=== PATIENT | male | born 1995 | race Caucasian/White ===

== ENCOUNTER 2025-02-04 08:16 | Emergency (ER) | payer OTHER, SELFPAY ==
[2025-02-04 08:17] VITALS: BP 152/81; PULSE 93; RESP 18; TEMP 37; O2SAT 100
[2025-02-04 08:18] VITALS: BMI 41.5
[2025-02-04 08:53] LABS: Absolute Lymphocyte Count 0.23 X10^3/uL (0.83-4.51); Absolute Neutrophil Count 7.9 X10^3/uL (2.0-7.7); Basophil# 0.02 X10^3/uL; Basophil% 0.2 % (0-1); Hematocrit 49.4 % (40-54); Lymphocyte # 0.23 X10^3/ul (0.83-4.51); Lymphocyte % 2.6 % (19-41); Mean Corp Hgb Conc 34.4 g/dL (32-36); Mean Corpuscular Hgb 29.8 pg (27.0-32.0); Mean Corpuscular Volume 86.7 fL (80-94); Mean Platelet Vol. 12.3 fl (6.2-12.0); Monocyte# 0.46 X10^3/uL; Monocyte% 5.3 % (0-10); NRBC Flagged by Analyzer 0 % (0-5); Neutrophil # 7.94 X10^3/uL (2.7-7.7); Neutrophil % 91.3 % (47-70); POSITIVE DIFFERENTIAL YES; Platelet Count 132 K/mm3 (150-450); RBC Distribution Width CV 12.7 % (11.6-14.6); RBC Distribution Width SD 39.9 fl (35.1-43.9); White Blood Count 8.7 K/mm3 (4.4-11.0)
[2025-02-04] MEDS: Morphine 4 MG/ML Syringe IV (08:53)
[2025-02-04] MEDS: 0.9% Normal Saline (1000mL) 1,000 ML 1000 ML IV ×3 (08:53→13:04)
[2025-02-04] MEDS: Ondansetron 4 MG/2 ML Vial IV (08:53)
--- OUTSIDE RECORDS SUMMARY | 2025-02-04 09:10 | XMS RPT_ITS | CCD ---
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 (1 source) Epididymo-orchit is; Translations: [EPIDIDYMO-ORCHI TIS] Onset: 07-17-2017 Episodic Results Test Name Value Interpretation Reference Range Facility Testicular with Arterial Gaurav won 07-03-2017 Testicular with Arterial Flow [facility] [address] [place], [place] [address]Mdymwyaaxz with Arterial FlowMR#: [id number] Acct: [id number]: ANDRE ALICEA Rep #: [id number]: 1995 M 21 From: Anupam Gracia MDPCP: Jeancarlos Patel MD Status: REG CLIStudy: Testicular with Arterial Flow Date of Exam: 07/03/17Exam# [id number] Ordering Dr: Jeancarlos Patel MDSTUDY: SCROTUM ULTRASOUNDREASON FOR EXAM: Male, 21 years old. Left testicular pain and swellingsince Thursday.TECHNIQUE: Ultrasound evaluation of the scrotum was performed with colorDoppler and static winchester-scale imaging.COMPARISON: None. FINDINGS:RIG HT TESTICLEINTRATESTICULAR: There is a normal size of the right testicle. The righttesticle measures 5.0 cm x 3.3 cm x 2.8 cm. There is a homogenousechotexture. There is normal arterial and normal venous vascularity.There is no demonstrated right testicular mass or cyst.EXTRATESTICULAR: The epididymis is normal in size. The epididymis headmeasures 0.6 cm x 1.2 cm x 0.6 cm. There is normal vascularity of theepididymis. There is no demonstrated epididymal cystic structure. Thereis no demonstrated hydrocele. There is no demonstrated varicocele. Thereis no demonstrated extratesticular mass or cyst.LEFT TESTICLEINTRATESTICULAR: There is a normal size of the left testicle. The lefttesticle measures 4.4 cm x 3.2 cm x 3.4 cm. There is a mild heterogeneousechotexture. There is normal arterial and normal venous vascularity.There is no demonstrated left testicular mass or cyst.EXTRATESTICULAR: The epididymis is enlarged. The epididymis head measures0.8 cm x 1.7 cm x 1.9 cm. There is increased (hyperemic) vascularity ofthe epididymis. There is no demonstrated epididymal cystic structure.There is a small hydrocele. Septations are seen within it. There is nodemonstrated varicocele. There is no demonstrated extratesticular mass orcyst. ORDER #: [id number] US/Testicular with Arterial FlowIMPRESSION:Small left hydrocele with septations. Enlargement of the left epididymiswith increased vascularity and mild echogenicity of the testicle. 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 Normal [facility] Encounters Encounter Date Encounter Type Care Provider Facility Start: 07-03-2017 Ambulatory Jeancarlos Patel Facility:[facility] Start: 06-30-2017 End: 07-01-2017 [facility] Payers Date Payer Category Payer Unknown 2017 Unknown [id number] Summary Purpose Family History No Family History Records FoundNo Family History Records Found Advance Directives No Advanced Directives Records FoundNo Advanced Directives Records Found Additional Source Comments (unrecognized sect ion and content) No Status Records FoundNo Status Records Found INFORMATION SOURCE (unrecogn ized section and content) DATE CREATED AUTHOR 02/23/2018 [facility] DATE CREATED AUTHOR AUTHOR'S FÉLIX VASQUEZ 02/23/2018 [facility] FOR RECORDS PERTAINING TO PATIENTS WHO ARE OR HAVE BEEN ENROLLED IN A CHEMICAL DEPENDENCY/SUBSTANCEABUSE PROGRAM, SOME INFORMATION MAY BE OMITTED. This clinical summary was aggregated from multiple sources. Caution should be exercised in using it in the provision of clinical care. This summary normalizes information from multiple sources, and as a consequence, information in this document may materially change the coding, format and clinical context of patient data. In addition, data may be omitted in some cases. CLINICAL DECISIONS SHOULD BE BASED ON THE PRIMARY CLINICAL RECORDS. [facility] [employer] provides no warranty or guarantee of the accuracy or completeness of information in this document.
[2025-02-04 09:17] LABS: ALB/GLOB Ratio 1.4 RATIO (0.9-2.4); AST(SGOT) 23 U/L (<=37); Alanine Aminotransfer ALT/SGPT 15 U/L (<=46); Albumin, Serum 4.1 g/dL (3.5-5.0); Alkaline Phosphatase 77 U/L (40-129); Anion Gap 13 (5-15); BUN 15 mg/dL (4-19); BUN/Creat Ratio 11.7 RATIO (10-20); Calcium,Total 9.3 mg/dL (7.6-11.0); Carbon Dioxide 22.5 mmol/L (21.0-32.0); Chloride 97 mmol/L (98-108); Creatinine, Serum 1.28 mg/dL (0.70-1.20); EST Glomerular Filtration Rate 79 (>60); Estimated Creatinine Clearance 118.35 ml/min (50-250); Globulin 2.9 g/dL (2.2-4.2); Glucose 145 mg/dL (70-99); Lipase 13 U/L (13-75); Sodium Level 132 mmol/L (133-145); Total Bilirubin 0.98 mg/dL (0.00-1.30)
[2025-02-04 09:21] LABS: Lactic Acid 2.3 mmol/L (0.0-2.0)
[2025-02-04 10:26] VITALS: BP 140/88; PULSE 70; RESP 28; O2SAT 99
--- NOTE | 2025-02-04 10:33 | EX.ED.DYSGE1 ---
HPI History of Present Illness Chief Complaint: Nausea/Vomiting/Diarrhea Detail of Chief Complaint: Numerous episodes of nausea and vomiting since last evening Informant: patient Onset/Context/Timing Onset: Yesterday Context: Sudden Onset Timing: Intermittent Quality: Nausea and vomiting 10-15 times and abdominal discomfort Location: GI Current Severity: Mild Maximum Severity: Moderate Worsened by: Palpation and attempt to eat or drink anything Relieved by: Nothing Associated Symptoms Associated Symptoms: Last bowel movement 2 days ago Narrative Narrative: Patient is a 29-year-old male. He presents to the emergency room with nausea and vomiting and abdominal pain. He has had no ill contacts. He denies fever, chills night sweats. Nu[place] headache, visual, ocular auditory symptoms. He denies any upper respiratory infectious symptoms. He denies diarrhea. He denies hematemesis or coffee-ground emesis. He said decreased urine output. He gets orthostatic lightheadedness. He denies rash. He has no significant past medical history. Patient appears ill but not toxic. Prior similar symptoms: Yes Recent Illness/Hospitalization: No PFSH PFSH Medical History no medical history no medical history Home Medications ?Medication ?Instructions ?Recorded ?Last Taken ?Type dicyclomine 10 mg capsule 20 mg (2 x 10 mg) PO TIDAC #20 02/04/25 Unknown Rx CAPSULES ondansetron 4 mg disintegrating 4 mg PO Q8H PRN PRN Nausea #6 tabs 02/04/25 Unknown Rx tablet Allergy/AdvReac Type Severity Reaction Status Date / Time No Known Allergies Allergy Verified 02/04/25 08:16 Surgical History no surgical history no surgical history Social History (Updated 02/04/25 @ 10:[address] Kenyon Irwin MD) Smoking Status: Current every day smoker tobacco type: cigarettes details: Rare occasion substance use type: does not use ROS ROS ED Constitutional Constitutional ED: Denies chills, fever(s), subjective or sweats Eyes Eyes: Denies blurry vision or change in vision ENT ENT ED: Denies ear pain, rhinorrhea or sore throat Cardiovascular Cardiovascular: Denies chest pain or palpitations Respiratory/Chest Respiratory/Chest: Denies cough, dyspnea or dyspnea on exertion Gastrointestinal Gastrointestinal: Reports abdominal pain, nausea and vomiting; Denies constipation, diarrhea or melena Genitourinary Genitourinary ED: Reports other Details: Decreased urine output ; Denies dysuria, hematuria or urinary frequency Musculoskeletal Musculoskeletal: Denies arthralgias or myalgias Integumentary Denies Abrasions or rash Neurologic Neurologic: Reports weakness; Denies headache(s) or paresthesias Hematologic/Lymphatic Hematologic/Lymphatic: Reports systems reviewed and no addt'l complaints, except as documented EXAM Physical Exam Const Vital Signs: 02/04/25 08:17 02/04/25 10:26 02/04/25 12:00 Temperature 98.6 F Temperature Source Temporal Pulse Rate 93 70 87 Respiratory Rate 18 28 H Blood Pressure 152/81 H 140/88 H 139/87 H Blood Pressure Mean 104 105 104 Pulse Ox 100 99 30 Oxygen Delivery Method Room Air 02/04/25 14:00 Temperature 103 F H Temperature Source Oral Pulse Rate 80 Respiratory Rate 30 H Blood Pressure 132/90 H Blood Pressure Mean 104 Pulse Ox 99 Oxygen Delivery Method Room Air Positive well nourished and well developed Constitutional Narrative: Vital signs remarkable for an elevated blood pressure. He is not tachycardic. He is not hypoxic. He does appear ill. BMI is 41.7. General Appearance ED: well developed; Negative for cyanotic, diaphoretic, NAD or pallor HEENT Reports dry mucous membranes HEENT Narrative: Head is atraumatic normocephalic. Ears normal. Nares patent. Posterior pharynx is normal. Mouth ED: Yes dry mucous membranes Mouth: dry mucous membranes Eyes PERRL and EOMs intact bilaterally General Eye ED: Negative for pale conjunctiva or scleral icterus Neck no lymphadenopathy, supple and no JVD Chest Wall inspection of chest normal and palpation of chest normal Resp normal respiratory effort and clear to auscultation bilaterally Cardio regular rate, regular rhythm, S1 normal heart sound, S2 normal heart sound and no murmurs GI normal to inspection, nondistended, normoactive bowel sounds, non-tender, non-distended and no masses; Negative for hepatosplenomegaly Back/Spine no CVA tenderness Extremity normal to inspection Neuro oriented x3 and CN's II-XII intact bilaterally Neuro Narrative: He moves all extremities. Sensorium / Orientation: alert Psych mental status grossly normal Skin no rashes or lesions noted, no wounds and skin turgor normal General Skin Exam: Negative for jaundice or pallor MDM MDM MDM Narrative Medical decision making narrative: Clinically patient is dehydrated. Clinically his history and physical not consistent with a obstruction. He has no history of She will bowel obstruction the past. Furthermore he has no history of surgery. He has no significant past medical history is on no medication. Suspect this is probably a viral type illness. Because of his complaint of abdominal pain blood work was obtained which included electrolytes, liver enzymes and lipase. Lactate was obtained since he appears ill. CBC was obtained assess H&H as well as white count differential. Since clinically he appears dehydrated 1 L of normal saline was ordered. Patient was reassessed at 1036. He still has not urinated or have the urge to urinate after 1 L. Second liter was ordered. He does report marked improvement after receiving the Zofran and morphine. Lab Data Attestation: I reviewed the patient's lab results. Lab results narrative: White count is normal. H&H is slightly elevated. There is no base line labs for comparison. Electrolyte panel reveals elevated creatinine of 1.28 with an estimated GFR of 79. Lactate is elevated 2.3. Liver enzymes and lipase are normal. Labs: Laboratory Results - last 24 hr 02/04/25 02/04/25 08:46 12:57 WBC 8.7 RBC 5.70 Hgb 17.0 H Hct 49.4 MCV 86.7 MCH 29.8 MCHC 34.4 RDW Std Deviation 39.9 RDW Coeff of Marti 12.7 Plt Count 132 L MPV 12.3 H Immature Gran % (Auto) 0.600 Neut % (Auto) 91.3 H Lymph % (Auto) 2.6 L [place] % (Auto) 5.3 Eos % (Auto) 0.0 Baso % (Auto) 0.2 Absolute Neuts (auto) 7.9 H Absolute Lymphs (auto) 0.23 L Nucleated RBC % 0 Sodium 132 L Potassium 4.0 Chloride 97 L Carbon Dioxide 22.5 Anion Gap 13 BUN 15 Creatinine 1.28 H Estim Creat Clear Calc 118.35 Est GFR (MDRD) Non-Af 79 BUN/Creatinine Ratio 11.7 Glucose 145 H Lactic Acid 2.3 H* 1.4 Calcium 9.3 Total Bilirubin 0.98 AST 23 ALT 15 Alkaline Phosphatase 77 Total Protein 7.0 Albumin 4.1 Globulin 2.9 Albumin/Globulin Ratio 1.4 Lipase 13 Repeat lactate is normal. Treatment and Re-Evaluation :: Patient was reassessed at 1300. 800 cc of his second liter has infused. He has no urge to urinate. Third liter was ordered. Discharge Plan Triage Chief Complaint: Nausea/Vomiting/Diarrhea ED Provider: Kenyon Irwin Dx/Rx/DC Orders Clinical Impression: Acute generalized abdominal pain, Intractable nausea and vomiting, Acute dehydration, Elevated serum creatinine, Acute hyponatremia, Thrombocytopenia, Acidosis, lactic Prescriptions: New ondansetron 4 mg tablet,disintegrating 4 mg PO Q8H PRN PRN (Reason: Nausea) Qty: 6 0RF dicyclomine 10 mg capsule 20 mg PO TIDAC Qty: 20 0RF Primary Care Provider: Care Physician,No Primary Referrals: Care Physician,No Primary [Primary Care Provider] - Print Language: Georgian Disposition Disposition: Home, Self Care
[2025-02-04] MEDS: 0.9% Normal Saline (1000mL) 1,000 ML 15 ML IV (10:39)
[2025-02-04 12:00] VITALS: BP 139/87; PULSE 87; O2SAT 30
[2025-02-04 12:51] LABS: Reflex Lactate? Y
[2025-02-04 13:56] LABS: Lactic Acid 1.4 mmol/L (0.0-2.0)
[2025-02-04 14:00] VITALS: BP 132/90; PULSE 80; RESP 30; TEMP 39.4; O2SAT 99
[2025-02-04 15:22] VITALS: BP 138/77; PULSE 80; RESP 30; TEMP 39.4; O2SAT 99
== END 2025-02-04 15:23 | disposition home or self-care (01) ==
PROVIDERS: Emergency Provider Emergency Medicine; Visit Provider Emergency Medicine
DX: R10.9 Unspecified abdominal pain (principal); R11.2 Nausea with vomiting, unspecified; E86.0 Dehydration; E87.1 Hypo-osmolality and hyponatremia; D69.6 Thrombocytopenia, unspecified; E87.20 Acidosis, unspecified; F17.210 Nicotine dependence, cigarettes, uncomplicated
CPT/HCPCS: 80053; 83605; 83690; 85025; 96361; 96374; 96375; 99284; A4216; J2405

== ENCOUNTER 2025-02-12 15:03 | Emergency (ER) | payer OTHER, SELFPAY ==
[2025-02-12] VITALS (7 sets, daily range): BP systolic 120–144; BP diastolic 68–80; PULSE 65–98; RESP 16–23; TEMP 37; O2SAT 92–99; BMI 39.5
--- NOTE | 2025-02-12 16:10 | CM.ED ---
Social Work Date of referral: 02/12/25 Reason for referral: No Primary Care Physician (PCP) Referred by: Social Work identification Patient provided consent to social work visit. Director Of Food And Nutrition provided patient with a written handout for [facility] which patient accepted and expressed appreciation for. beam worker also provided verbal education about the importance and benefits of being established with a PCP. No other concerns/requests noted at this time. Annabel Hercules, PHARM TECH, ELECTRONIC MAINTENANCE SUPERVISOR
--- OUTSIDE RECORDS SUMMARY | 2025-02-12 16:20 | XMS RPT_ITS | CCD ---
Author Organization [facility] Care Team Providers Care Calender Machine Operator Name Role Phone Joshuabandar Octavianoyunior Ovalles Unavailable Unavailable Theodora Octavianoyunior Ovalles Unavailable Unavailable No Doctor Assigned, Nodr Unavailable Unavail able Dc WHITEHEAD, Dr. Prescott Emergency Provider [phone] Care Physician, No Primary Primary Care Provider Unavailable Kenyon Irwin Attending Unavailable Care Physician, No Primary Primary Care Unava ilable Medications Current Medications Medication Drug Class(es) Dates Sig (Normalized) Sig (Original) dicyclomine hydrochloride 10 mg oral capsule (1 source) Anticholinergic Start: 02-04-2025 take 2 capsules by mouth three times daily before mealtime Dicyclomine 10 mg capsule Active 20 mg PO THREE TIMES DAILY BEFORE MEALS February 04, 2025 12:00am ondansetron 4 mg disintegrating oral tablet (1 source) Serotonin-3 Receptor Antagonist Start: 02-04-2025 take 1 tablet by mouth every eight hours as needed for nausea Ondansetron 4 mg tablet,disintegr ating Active 4 mg PO EVERY 8 HOURS NEEDED as needed for Nausea February 04, 2025 12:00am Problems Problem Classification Problem Date Documented Da te Episodic/Chronic Abdominal pain (1 source) Acute abdominal pain; Translations: [Generalized abdominal pain] 02-04-2025 Episodic Coagulation and hemorrhagic disorders (1 source) Thrombocytopenic disorder; Translations: [Thrombocytopenia, unspecified] 02-04-2025 Chronic Fluid and electrolyte disorders (3 sources) Dehydration; Translations: [Dehydration] 02-04-2025 Episodic Nausea and vomiting (1 source) Intractable nausea and vomiting; Translations: [Nausea with vomiting, unspecified] 02-04-2025 Episodic Other screening for suspected conditions (not mental disorders or infectious disease) (1 source) Serum creatinine raised; Translations: [Other specified abnormal findings of blood chemistry] 02-04-2025 Episodic Results Test Name Value Interpretation Reference Range Facility Absolute lymphocyte countOrd ered By: Kenyonabril Irwin on 02-04-2025 Lymphocytes Auto (Unsp spec) [#/Vol] 0.23 10*3/uL Low 0.83-4.51 [facility] Absolute neutrophil countOrd ered By: Kenyon Irwin on 02-04-2025 Neutrophils (Bld) [#/Vol] 7.9 10*3/uL High 2.0-7.7 [facility] Anion gap in Serum or Plasma Ordered By: Kenyonabril Adairo on 02-04-2025 Anion gap [Moles/Vol] 13 mmol/L 5-15 [facility] Automated lymphocyte count a s percentage of total leukocytesOrdered By: [facility] on 02-04-2025 Lymphocytes/100 WBC Auto (Unsp spec) 2.6 % Low 19- [facility] BUN/creatinine ratioOrdered By: [facility] Urea nitrogen/Creatinine [Mass ratio] 11.7 mg/mg 10- [facility] Basophil percentageOrdered B y: Kenyonabril Adairo on 02-04-2025 Basophils/100 WBC (Bld) 0.2 % 0-1 [facility] Bilirubin, totalOrdered By: Kenyonabril Irwin on 02-04-2025 Bilirubin [Mass/Vol] 0.98 mg/dL 0.00-1.30 [facility] CBC W/Diff, Automatedon Absolute Lymph 0.23 X10 3/uL Low 0.83-4.51 [facility] Comment on above: Performed By: #### L 501.2450, L503.6005, L500.4050, L100.0100 #### [facility] [address] [place], [address] Absolute Neut 7.9 X10 3/uL High 2.0-7.7 [facility] Comment on above: Performed By: #### L 501.2450, L503.6005, L500.4050, L100.0100 #### [facility] [address] [place], [address] Basophils/100 WBC (Bld) 0.2 % Normal 0-1 [facility] Comment on above: Performed By: #### L 501.2450, L503.6005, L500.4050, L100.0100 #### [facility] [address] [place], [address] Eosinophils/100 WBC (Bld) 0.0 % Normal 0-5 [facility] Comment on above: Performed By: #### L 501.2450, L503.6005, L500.4050, L100.0100 #### [facility] [address] [place], [address] Erythrocyte distribution width (RBC) [Ratio] 12.7 % Normal 11.6-14.6 [facility] Comment on above: Performed By: #### L 501.2450, L503.6005, L500.4050, L100.0100 #### [facility] [address] [place], [address] Hematocrit (Bld) [Volume fraction] 49.4 % Normal 40-54 [facility] Comment on above: Performed By: #### L 501.2450, L503.6005, L500.4050, L100.0100 #### [facility] [address] [place], [address] Hemoglobin (Bld) [Mass/Vol] 17.0 g/dL High 13.0-16.5 [facility] Comment on above: Performed By: #### L 501.2450, L503.6005, L500.4050, L100.0100 #### [facility] [address] [place], [address] IG% 0.600 Normal 0.0-0.9 [facility] Comment on above: Result Comment: IG% - Immature Granulocytes (promyelocytes, myelocytes and metamyelocytes) > 1% indicates that a LEFT SHIFT is Present. Performed By: #### L 501.2450, L503.6005, L500.4050, L100.0100 #### [facility] [address] [place], [address] Lymphocytes/100 WBC (Bld) 2.6 % Low 19-41 [facility] Comment on above: Performed By: #### L 501.2450, L503.6005, L500.4050, L100.0100 #### [facility] [address] [place], [address] MCH (RBC) [Entitic mass] 29.8 pg Normal 27.0-32.0 [facility] Comment on above: Performed By: #### L 501.2450, L503.6005, L500.4050, L100.0100 #### [facility] [address] [place], [address] MCHC (RBC) [Mass/Vol] 34.4 g/dL Normal 32-36 [facility] Comment on above: Performed By: #### L 501.2450, L503.6005, L500.4050, L100.0100 #### [facility] [address] [place], [address] MCV (RBC) [Entitic vol] 86.7 fL Normal 80-94 [facility] Comment on above: Performed By: #### L 501.2450, L503.6005, L500.4050, L100.0100 #### [facility] [address] [place], [address] Monocytes/100 WBC (Bld) 5.3 % Normal 0-10 [facility] Comment on above: Performed By: #### L 501.2450, L503.6005, L500.4050, L100.0100 #### [facility] [address] [place], [address] Neutrophils/100 WBC (Bld) 91.3 % High 47-70 [facility] Comment on above: Performed By: #### L 501.2450, L503.6005, L500.4050, L100.0100 #### [facility] [address] [place], [address] Nucleated RBC (Bld) [#/Vol] 0 10*3/uL Normal 0-5 [facility] Comment on above: Performed By: #### L 501.2450, L503.6005, L500.4050, L100.0100 #### [facility] [address] [place], [address] Platelet mean volume (Bld) [Entitic vol] 12.3 fL High 6.2-12.0 [facility] Comment on above: Performed By: #### L 501.2450, L503.6005, L500.4050, L100.0100 #### [facility] [address] [place], [address] Platelets (Bld) [#/Vol] 132 10*3/uL Low 150-450 [facility] Comment on above: Performed By: #### L 501.2450, L503.6005, L500.4050, L100.0100 #### [facility] [address] [place], [address] RBC (Bld) [#/Vol] 5.70 10*6/uL Normal 4.6-6.2 [facility] Comment on above: Performed By: #### L 501.2450, L503.6005, L500.4050, L100.0100 #### [facility] [address] [place], [address] RDW SD 39.9 fl Normal 35.1-43.9 [facility] Comment on above: Performed By: #### L 501.2450, L503.6005, L500.4050, L100.0100 #### [facility] [address] [place], [address] WBC (Bld) [#/Vol] 8.7 10*3/uL Normal 4.4-11.0 [facility] Comment on above: Performed By: #### L 501.2450, L503.6005, L500.4050, L100.0100 #### [facility] [address] [place], [address] Carbon dioxide, total [Moles /volume] in Central venous bloodOrdered By: Kenyon Irwin on 02-04-2025 CO2 [Moles/Vol] 22.5 mmol/L 21.0-32.0 [facility] Chloride assayOrdered By: Ug o Dc on 02-04-2025 Chloride [Moles/Vol] 97 mmol/L Low 98-108 [facility] Comprehensive Metabolic Prof ilon 02-04-2025 Albumin [Mass/Vol] 4.1 g/dL Normal 3.5-5.0 [facility] Comment on above: Performed By: #### L 501.2450, L503.6005, L500.4050, L100.0100 #### [facility] [address] [place], [address] Albumin/Globulin [Mass ratio] 1.4 {ratio} Normal 0.9-2.4 [facility] Comment on above: Performed By: #### L 501.2450, L503.6005, L500.4050, L100.0100 #### [facility] [address] [place], [address] ALK PHOS 77 U/L Normal 40-129 [facility] Comment on above: Performed By: #### L 501.2450, L503.6005, L500.4050, L100.0100 #### [facility] [address] [place], [address] ALT [Catalytic activity/Vol] 15 U/L Normal <=46 [facility] Comment on above: Performed By: #### L 501.2450, L503.6005, L500.4050, L100.0100 #### [facility] [address] [place], [address] AST [Catalytic activity/Vol] 23 U/L Normal <=37 [facility] Comment on above: Performed By: #### L 501.2450, L503.6005, L500.4050, L100.0100 #### [facility] [address] [place], [address] Bilirubin [Mass/Vol] 0.98 mg/dL Normal 0.00-1.30 [facility] Comment on above: Performed By: #### L 501.2450, L503.6005, L500.4050, L100.0100 #### [facility] [address] [place], [address] BUN/CRE 11.7 RATIO Normal 10-20 [facility] Comment on above: Performed By: #### L 501.2450, L503.6005, L500.4050, L100.0100 #### [facility] [address] [place], [address] Calcium [Mass/Vol] 9.3 mg/dL Normal 7.6-11.0 [facility] Comment on above: Performed By: #### L 501.2450, L503.6005, L500.4050, L100.0100 #### [facility] [address] [place], [address] Chloride [Moles/Vol] 97 mmol/L Low 98-108 [facility] Comment on above: Performed By: #### L 501.2450, L503.6005, L500.4050, L100.0100 #### [facility] [address] [place], [address] CO2 [Moles/Vol] 22.5 mmol/L Normal 21.0-32.0 [facility] Comment on above: Performed By: #### L 501.2450, L503.6005, L500.4050, L100.0100 #### [facility] [address] [place], [address] Creatinine [Mass/Vol] 1.28 mg/dL High 0.70-1.20 [facility] Comment on above: Performed By: #### L 501.2450, L503.6005, L500.4050, L100.0100 #### [facility] [address] [place], [address] ECRCL 118.35 ml/min Normal 50-250 [facility] Comment on above: Performed By: #### L 501.2450, L503.6005, L500.4050, L100.0100 #### [facility] [address] [place], [address] GAP 13 Normal 5-15 [facility] Comment on above: Performed By: #### L 501.2450, L503.6005, L500.4050, L100.0100 #### [facility] [address] [place], [address] GFR/1.73 sq M.predicted among non-blacks MDRD (S/P/Bld) [Vol rate/Area] 79 mL/min/{1.73_m2} Normal >60 [facility] Comment on above: Result Comment: mL/m in/1.73m2 CKD-EPI Creatinine Equation (2020) Performed By: #### L 501.2450, L503.6005, L500.4050, L100.0100 #### [facility] [address] [place], [address] Globulin (S) [Mass/Vol] 2.9 g/dL Normal 2.2-4.2 [facility] Comment on above: Performed By: #### L 501.2450, L503.6005, L500.4050, L100.0100 #### [facility] [address] [place], [address] Glucose [Mass/Vol] 145 mg/dL High 70-99 [facility] Comment on above: Performed By: #### L 501.2450, L503.6005, L500.4050, L100.0100 #### [facility] [address] [place], [address] Potassium [Moles/Vol] 4.0 mmol/L Normal 3.3-5.1 [facility] Comment on above: Performed By: #### L 501.2450, L503.6005, L500.4050, L100.0100 #### [facility] [address] [place], [address] Sodium [Moles/Vol] 132 mmol/L Low 133-145 [facility] Comment on above: Performed By: #### L 501.2450, L503.6005, L500.4050, L100.0100 #### [facility] [address] [place], [address] T PROT 7.0 g/dL Normal 5.9-8.4 [facility] Comment on above: Performed By: #### L 501.2450, L503.6005, L500.4050, L100.0100 #### [facility] [address] [place], [address] Urea nitrogen [Mass/Vol] 15 mg/dL Normal 4-19 [facility] Comment on above: Performed By: #### L 501.2450, L503.6005, L500.4050, L100.0100 #### [facility] [address] [place], [address] Emergency Department Summary on 02-04-2025 Emergency Department Summary [facility] Medical Records Department [address] [place] [address] Emergency Department Summary 02/04/25 MR#: [id number] Acct: [id number] Name: ANDRE ALICEA Rep #: [id number] : 1995 29 From: Kenyon Irwin MD PCP: Care Physician,No Primary Status:REG ER Location: ED ADDENDUM by Dr. Kenyon Irwin MD on 02/04/25 at 1503 Patient did urinate after third liter. He was instructed to drink more fluids. 02/04/25 1503 Cosigner Signature (if applicable): cc: No Primary Care Physician * Signed HPI History of Present Illness Chief Complaint: Nausea/Vomiting/Di arrhea Detail of Chief Complaint: Numerous episodes of nausea and vomiting since last evening Informant: patient Onset/Context/Natanael elvie Onset: Yesterday Context: Sudden Onset Timing: Intermittent Quality: Nausea and vomiting 10-15 times and abdominal discomfort Location: GI Current Severity: Mild Maximum Severity: Moderate Worsened by: Palpation and attempt to eat or drink anything Relieved by: Nothing Associated Symptoms Associated Symptoms: Last bowel movement 2 days ago Narrative Narrative: Patient is a 29-year-old male. He presents to the emergency room with nausea and vomiting and abdominal pain. He has had no ill contacts. He denies fever, chills night sweats. Nuys headache, visual, ocular auditory symptoms. He denies any upper respiratory infectious symptoms. He denies diarrhea. He denies hematemesis or coffee-ground emesis. He said decreased urine output. He gets orthostatic lightheadedness. He denies rash. He has no significant past medical history. Patient appears ill but not toxic. Prior similar symptoms: Yes Recent Illness/Hospitaliz ation: No PFSH PFSH Medical History no medical history no medical history Home Medications ???Medication ???Instructions ???Recorded ???Last Taken ???Type dicyclomine 10 mg capsule 20 mg (2 x 10 mg) PO TIDAC #20 03/24 Unknown Rx CAPSULES ondansetron 4 mg disintegrating 4 mg PO Q8H PRN PRN Nausea #6 tabs 02/04/25 Unknown Rx tablet Allergy/AdvReac Type Severity Reaction Status Date / Time No Known Allergies Allergy Verified 02/04/25 08:16 Surgical History no surgical history no surgical history Social History (Updated 02/04/25 @ 10:[address] Kenyon Irwin MD) Smoking Status: Current every day smoker tobacco type: cigarettes details: Rare occasion substance use type: does not use ROS ROS ED Constitutional Constitutional ED: Denies chills, fever(s), subjective or sweats Eyes Eyes: Denies blurry vision or change in vision ENT ENT ED: Denies ear pain, rhinorrhea or sore throat Cardiovascular Cardiovascular: Denies chest pain or palpitations Respiratory/Chest Respiratory/Chest: Denies cough, dyspnea or dyspnea on exertion Gastrointestinal Gastrointestinal: Reports abdominal pain, nausea and vomiting; Denies constipation, diarrhea or melena Genitourinary Genitourinary ED: Reports other Details: Decreased urine output ; Denies dysuria, hematuria or urinary frequency Musculoskeletal Musculoskeletal: Denies arthralgias or myalgias Integumentary Denies Abrasions or rash Neurologic Neurologic: Reports weakness; Denies headache(s) or paresthesias Hematologic/Lympha tic Hematologic/Lympha tic: Reports systems reviewed and no addt'l complaints, except as documented EXAM Physical Exam Const Vital Signs: 02/04/25 08:17 02/04/25 10:26 02/04/25 12:00 Temperature 98.6 F Temperature Source Temporal Pulse Rate 93 70 87 Respiratory Rate 18 28 H Blood Pressure 152/81 H 140/88 H 139/87 H Blood Pressure Mean 104 105 104 Pulse Ox 100 99 30 Oxygen Delivery Method Room Air 02/04/25 14:00 Temperature 103 F H Temperature Source Oral Pulse Rate 80 Respiratory Rate 30 H Blood Pressure 132/90 H Blood Pressure Mean 104 Pulse Ox 99 Oxygen Delivery Method Room Air Positive well nourished and well developed Constitutional Narrative: Vital signs remarkable for an elevated blood pressure. He is not tachycardic. He is not hypoxic. He does appear ill. BMI is 41.7. General Appearance ED: well developed; Negative for cyanotic, diaphoretic, NAD or pallor HEENT Reports dry mucous membranes HEENT Narrative: Head is atraumatic normocephalic. Ears normal. Nares patent. Posterior pharynx is normal. Mouth ED: Yes dry mucous membranes Mouth: dry mucous membranes Eyes PERRL and EOMs intact bilaterally General Eye ED: Negative for pale conjunctiva or scleral icterus Neck no lymphadenopathy, supple and no JVD Chest Wall inspection of chest normal and palpation of chest normal Resp normal respiratory effort and clear to auscultation bilaterally Cardio regular rate, regular rhythm, S1 normal heart sound, S2 normal heart (more content not included)... Normal [facility] Eosinophil percentageOrdered By: Kenyon Irwin on 02-04-2025 Eosinophils/100 WBC (Bld) 0.0 % 0-5 [facility] Erythrocyte distribution wid th ratioOrdered By: Kenyon Irwni on 02-04-2025 Erythrocyte distribution width (RBC) [Ratio] 12.7 % 11.6-14.6 [facility] Erythrocyte distribution wid th standard deviationOrdered By: Kenyonabril Irwin on 02-04-2025 Erythrocyte distribution width (RBC) [Ratio] 39.9 fl 35.1-43.9 [facility] Glomerular filtration rate ( GFR) estimation/1.73 sq m using serum, plasma, or whole bOrdered By: Kenyonabril Irwin on 02-04-2025 GFR/1.73 sq M.predicted among non-blacks MDRD (S/P/Bld) [Vol rate/Area] 79 mL/min/{1.73_m2} >60 [facility] Comment on above: mL/min/1.73m2 CKD-EP I Creatinine Equation (2020) Hematocrit Auto (Bld) [Volum e fraction]Ordered By: Kenyon Irwin on 02-04-2025 Hematocrit (Bld) [Volume fraction] 49.4 % 40-54 [facility] Hemoglobin measurementOrdere d By: Kenyon Irwin on 02-04-2025 Hemoglobin (Bld) [Mass/Vol] 17.0 g/dL High 13.0-16.5 [facility] Immature granulocytes/100 WB C Auto (Bld)Ordered By: Kenyon Irwin on 02-04-2025 Immature granulocytes/100 WBC (Bld) 0.600 % 0.0-0.9 [facility] Comment on above: IG% - Immature Granu locytes (promyelocytes, myelocytes and metamyelocytes) > 1% indicates that a LEFT SHIFT is Present. Laboratory - Chemistry and C hemistry - challengeOrdered By: Kenyon Irwin on 02-04-2025 AST [Catalytic activity/Vol] 23 U/L <38 [facility] Lactic Acidon 02-04-2025 Lactate [Moles/Vol] 1.4 mmol/L Normal 0.0-2.0 [facility] Comment on above: Performed By: #### L 503.6005 #### [facility] [address] [place], [address] Lactate [Moles/Vol] 2.3 mmol/L Invalid Interpretation Code 0.0-2.0 [facility] Comment on above: Order Comment: Y Result Comment: Crit ical Result(s) Called at 0921: by: OSMEL BREAUX TO RVIZZO. ??Results read back by same. Performed By: #### L 501.2450, L503.6005, L500.4050, L100.0100 #### [facility] [address] [place], [address] Lactic acid measurementOrder ed By: Kenyon Irwin on 02-04-2025 Lactate [Moles/Vol] 1.4 mmol/L 0.0-2.0 [facility] Lipaseon 02-04-2025 Lipase [Catalytic activity/Vol] 13 U/L Normal 13-75 [facility] Comment on above: Result Comment: Plea se note: LIPASE revised reference range effective 22. New Lipase methodology. Expected to produce lower values than the previous assay method. NEW Reference Range: 13 - 75 U/L Performed By: #### L 501.2450, L503.6005, L500.4050, L100.0100 #### [facility] [address] [place], [address] Lipase measurementOrdered By : Kenyon Irwin on 02-04-2025 Lipase [Catalytic activity/Vol] 13 U/L 13-75 [facility] Comment on above: Please note:LIPASE r evised reference range effective 22. New Lipase methodology. Expected to produce lower values than the previous assay method. NEW Reference Range: 13 - 75 U/L MCV (mean corpuscular volume ) determinationOrdered By: Kenyon Irwin on 02-04-2025 MCV (RBC) [Entitic vol] 86.7 fL 80-94 [facility] Mean corpuscular hemoglobin (MCH) determinationOrdered By: Kenyon Irwin on 02-04-2025 MCH (RBC) [Entitic mass] 29.8 pg 27.0-32.0 [facility] Mean corpuscular hemoglobin concentration (MCHC) determinationOrdered By: Kenyon Irwin on 02-04-2025 MCHC (RBC) [Mass/Vol] 34.4 g/dL 32-36 [facility] Mean platelet volume determi nationOrdered By: Kenyon Iriwn on 02-04-2025 Platelet mean volume (Bld) [Entitic vol] 12.3 fL High 6.2-12.0 [facility] Monocyte percentageOrdered B y: Kenyon Irwin on 02-04-2025 Monocytes/100 WBC (Bld) 5.3 % 0-10 [facility] Neutrophil percentageOrdered By: Kenyon Irwin on 02-04-2025 Neutrophils/100 WBC (Bld) 91.3 % High 47-70 [facility] Nucleated red blood cell per centageOrdered By: Kenyonabril Irwin on 02-04-2025 Nucleated RBC/100 WBC (Bld) [Ratio] 0 % 0-5 [facility] Platelet countOrdered By: Tim Irwin on 02-04-2025 Platelets (Bld) [#/Vol] 132 10*3/uL Low 150-450 [facility] Potassium measurement (mass/ volume)Ordered By: Kenyon Irwin on 02-04-2025 Potassium (Unsp spec) [Mass/Vol] 4.0 mmol/L 3.3-5.1 [facility] RBC Auto (Bld) [#/Vol]Ordere d By: Kenyon Irwin on 02-04-2025 RBC (Bld) [#/Vol] 5.70 10*6/uL 4.6-6.2 [facility] Serum creatinine measurement (mass/volume)Ordered By: Kenyon Irwin on 02-04-2025 Creatinine [Mass/Vol] 1.28 mg/dL High 0.70-1.20 [facility] Serum globulin measurementOr dered By: Kenyon Irwin on 02-04-2025 Globulin (S) [Mass/Vol] 2.9 g/dL 2.2-4.2 [facility] Serum glucose measurement (m ass/volume)Ordered By: Kenyon Irwin on 02-04-2025 Glucose [Mass/Vol] 145 mg/dL High 70-99 [facility] Serum or plasma alanine corbett otransferase (ALT) measurementOrdered By: Kenyon Irwin on 02-04-2025 ALT [Catalytic activity/Vol] 15 U/L <47 [facility] Serum or plasma albumin noman urement (mass/volume)Ordered By: Kenyon Irwin on 02-04-2025 Albumin [Mass/Vol] 4.1 g/dL 3.5-5.0 [facility] Serum or plasma albumin/glob ulin mass ratioOrdered By: Kenyon Irwin on 02-04-2025 Albumin/Globulin [Mass ratio] 1.4 {ratio} 0.9-2.4 [facility] Serum or plasma alkaline stone sphatase measurementOrdered By: Kenyon Irwin on 02-04-2025 ALP [Catalytic activity/Vol] 77 U/L 40-129 [facility] Serum or plasma calcium noman urement (mass/volume)Ordered By: Kenyon Irwin on 02-04-2025 Calcium [Mass/Vol] 9.3 mg/dL 7.6-11.0 [facility] Serum or plasma urea nitroge n measurement (mass/volume)Ordered By: Kenyon Irwin on 02-04-2025 Urea nitrogen [Mass/Vol] 15 mg/dL 4-19 [facility] Sodium levelOrdered By: Kenyon Irwin on 02-04-2025 Sodium [Moles/Vol] 132 mmol/L Low 133-145 [facility] Total proteinOrdered By: Kenyon Irwin on 02-04-2025 Protein [Mass/Vol] 7.0 g/dL 5.9-8.4 [facility] White blood cell (WBC) count Ordered By: Kenyon Irwin on 02-04-2025 WBC (Bld) [#/Vol] 8.7 10*3/uL 4.4-11.0 [facility] Vital Signs Date Time Vital Sign Value Performing Clinician Akash youngy 02-04-2025 15:22-0400 Body temperature 103 [degF] Dr. Kenyon Irwin MD Work Phone: [phone] [place] [address] 02-04-2025 15:22-0400 Diastolic blood pressure 77 mm[Hg] Dr. Kenyon Irwin MD Work Phone: [phone])[phone] [address] 02-04-2025 15:22-0400 Heart rate 80 /min Dr. Kenyon Irwin MD Work Phone: 1(940)[phone] [address] 02-04-2025 15:22-0400 Respiratory rate 30 /min Dr. Kenyon Irwin MD Work Phone: 1(324)[phone] [address] 02-04-2025 15:22-0400 SaO2% (BldA) [Mass fraction] 99 % Dr. Kenyon Irwin MD Work Phone: 1(343)[phone] [address] 02-04-2025 15:22-0400 Systolic blood pressure 138 mm[Hg] Dr. Kenyon Irwin MD Work Phone: [phone] [place] [address] 02-04-2025 08:18-0400 Body mass index (BMI) [Ratio] 41.5 kg/m2 Dr. Kenyon Irwin MD Work Phone: [facility] 02-04-2025 08:18-0400 Body weight 131.[address] Kenyon Irwin MD Work Phone: [facility] 02-04-2025 08:17-0400 Body height 177.[address] Kenyon Irwin MD Work Phone: [facility] Encounters Encounter Date Encounter Type Care Provider Facility Start: 02-04-2025 End: 02-04-2025 Emergency department patient visit Dr. Kenyon Irwin MD Work Phone: -Emergency Department Work Phone: Start: 06-30-2017 End: 07-01-2017 Ambulatory [facility] Facility:[facility] Procedures Date Procedure Procedure Detail Performing Clinician Start: 02-04-[address] Kenyon Irwin MD Work Phone: Plan of Treatment Date Care Activity Detail Author Start: 02-04-2025 [facility] Patient Education ED Vomiting (Adult) [facility] Work Phone: Patient referral [facility] Work Phone: Payers Date Payer Category Payer Private Health Insurance [id number] 2025 Self-pay 2017 Unknown 2017 Unknown SCAR [id number] Unknown [id number] Social History Date Type Detail Facility Start: 02-04-2025 [facility] Start: 1995 Sex Assigned At Male W [facility] Discharge summary 02-04-2025 Note Date & Type Note Facility 02-04-2025 Discharge summary [facility] Discharge summary 02-04-2025 Note Date & Type Note Facility 02-04-2025 Discharge summary Note Date/Time February 04, 2025 3:03pm [facility] Medical Records Department [address] [place] [address] Emergency Department Summary 02/04/25 MR#: [id number] Acct: [id number] Name: ANDRE ALICEA Rep #:[id number] : 1995 29 From: Kenyon Irwin MD PCP: Care Physician,No Primary Status :REG ER Location: ED ADDENDUM by Dr. Kenyon Irwin MD on 02/04/25 at 1503 Patient did urinate after third liter. He was instructed to drink more fluids. 02/04/25 1503<Electronically signed by Kenyon Irwin MD> Cosigner Signature (if applicable): cc: No Primary Care Physician ~* Signed HPI History of Present Illness Chief Complaint: Nausea/Vomiting/Diarrhea Detail of Chief Complaint: Numerous episodes of nausea and vomiting since last evening Informant: patient Onset/Context/Timing Onset: Yesterday Context: Sudden Onset Timing: Intermittent Quality: Nausea and vomiting 10-15 times and abdominal discomfort Location: GI Current Severity: Mild Maximum Severity: Moderate Worsened by: Palpation and attempt to eat or drink anything Relieved by: Nothing Associated Symptoms Associated Symptoms: Last bowel movement 2 days ago Narrative Narrative: Patient is a 29-year-old male. He presents to the emergency room with nausea and vomiting and abdominal pain. He has had no ill contacts. He denies fever, chills night sweats. [place] headache, visual, ocular auditory symptoms. He denies any upper respiratory infectious symptoms. He denies diarrhea. He denies hematemesis or coffee-ground emesis. He said decreased urine output. Hegets orthostatic lightheadedness. He denies rash. He has no significant past medical history. Patient appears ill but not toxic. Prior similar symptoms: Yes Recent Illness/Hospitalization: No PFSH PFSH Medical History no medical history no medical history Home Medications ?Medication ?Instructions ?Recorded ?Last Taken ?Type dicyclomine 10 mg capsule 20 mg (2 x 10 mg) PO TIDAC # 20 02/04/25 Unknown Rx CAPSULES ondansetron 4 mg disintegrating 4 mg PO Q8H PRN PRN Na usea #6 tabs 02/04/25 Unknown Rx tablet Allergy/AdvReac Type Severity Reaction Status Date / Time No Known Allergies Allergy Verified 02/04/25 08:16 Surgical History no surgical history no surgical history Social History (Updated 02/04/25 @ 10:[address] Kenyon Irwin MD) Smoking Status: Current every day smoker tobacco type: cigarettes details: Rare occasion substance use type: does not use ROS ROS ED Constitutional Constitutional ED: Denies chills, fever(s), subjective or sweats Eyes Eyes: Denies blurry vision or change in vision ENT ENT ED: Denies ear pain, rhinorrhea or sore throat Cardiovascular Cardiovascular: Denies chest pain or palpitations Respiratory/Chest Respiratory/Chest: Denies cough, dyspnea or dyspnea on exertion Gastrointestinal Gastrointestinal: Reports abdominal pain, nausea and vomiting; Denies constipation, diarrhea or melena Genitourinary Genitourinary ED: Reports other Details: Decreased urine output ; Denies dysuria, hematuria or urinary frequency Musculoskeletal Musculoskeletal: Denies arthralgias or myalgias Integumentary Denies Abrasions or rash Neurologic Neurologic: Reports weakness; Denies headache(s) or paresthesias Hematologic/Lymphatic Hematologic/Lymphatic: Reports systems reviewed and no addt'l complaints, exceptas documented EXAM Physical Exam Const Vital Signs: 02/04/25 08:17 02/04/25 10:26 02/04/25 12:00 Temperature 98.6 F Temperature Source Temporal Pulse Rate 93 70 87 Respiratory Rate 18 28 H Blood Pressure 152/81 H 140/88 H 139/87 H Blood Pressure Mean 104 105 104 Pulse Ox 100 99 30 Oxygen Delivery Method Room Air 02/04/25 14:00 Temperature 103 F H Temperature Source Oral Pulse Rate 80 Respiratory Rate 30 H Blood Pressure 132/90 H Blood Pressure Mean 104 Pulse Ox 99 Oxygen Delivery Method Room Air Positive well nourished and well developed Constitutional Narrative: Vital signs remarkable for an elevated blood pressure. He is not tachycardic. He is not hypoxic. He does appear ill. BMI is 41.7. General Appearance ED: well developed; Negative for cyanotic, diaphoretic, NAD or pallor HEENT Reports dry mucous membranes HEENT Narrative: Head is atraumatic normocephalic. Ears normal. Nares patent. Posterior pharynx is normal. Mouth ED: Yes dry mucous membranes Mouth: dry mucous membranes Eyes PERRL and EOMs intact bilaterally General Eye ED: Negative for pale conjunctiva or scleral icterus Neck no lymphadenopathy, supple and no JVD Chest Wall inspection of chest normal and palpation of chest normal Resp normal respiratory effort and clear to auscultation bilaterally Cardio regular rate, regular rhythm, S1 normal heart sound, S2 normal heart sound and no murmurs GI normal to inspection, nondistended, normoactive bowel sounds, non-tender, non-distended and no masses; Negative for hepatosplenomegaly Back/Spine no CVA tenderness Extremity normal to inspection Neuro oriented x3 and CN's II-XII intact bilaterally Neuro Narrative: He moves all extremities. Sensorium / Orientation: alert Psych mental status grossly normal Skin no rashes or lesions noted, no wounds and skin turgor normal General Skin Exam: Negative for jaundice or pallor MDM MDM MDM Narrative Medical decision making narrative: Clinically patient is dehydrated. Clinically his history and physical not consistent with a obstruction. He has no history of She will bowel obstruction the past. Furthermore he has no history of surgery. He has no significant past medical history is on no medication. Suspect this isprobably a viral type illness. Because of his complaint of abdominal pain bloodwork was obtained which included electrolytes, liver enzymes and lipase. Lactate was obtained since he appears ill. CBC was obtained assess H&H as well as white count differential. Since clinically he appears dehydrated 1 L of normal saline was ordered. Patient was reassessed at 1036. He still has not urinated or have the urge to urinate after 1 L. Second liter was ordered. He does report marked improvementafter receiving the Zofran and morphine. Lab Data Attestation: I reviewed the patient's lab results. Lab results narrative: White count is normal. H&H is slightly elevated. There is no base line labs for comparison. Electrolyte panel reveals elevated creatinine of 1.28 with an estimated GFR of 79. Lactate is elevated 2.3. Liver enzymes and lipase are normal. Labs: Laboratory Results - last 24 hr 02/04/25 02/04/25 08:46 12:57 WBC 8.7 RBC 5.70 Hgb 17.0 H Hct 49.4 MCV 86.7 MCH 29.8 MCHC 34.4 RDW Std Deviation 39.9 RDW Coeff of Marti 12.7 Plt Count 132 L MPV 12.3 H Immature Gran % (Auto) 0.600 Neut % (Auto) 91.3 H Lymph % (Auto) 2.6 L [place] % (Auto) 5.3 Eos % (Auto) 0.0 Baso % (Auto) 0.2 Absolute Neuts (auto) 7.9 H Absolute Lymphs (auto) 0.23 L Nucleated RBC % 0 Sodium 132 L Potassium 4.0 Chloride 97 L Carbon Dioxide 22.5 Anion Gap 13 BUN 15 Creatinine 1.28 H Estim Creat Clear Calc 118.35 Est GFR (MDRD) Non-Af 79 BUN/Creatinine Ratio 11.7 Glucose 145 H Lactic Acid 2.3 H* 1.4 Calcium 9.3 Total Bilirubin 0.98 AST 23 ALT 15 Alkaline Phosphatase 77 Total Protein 7.0 Albumin 4.1 Globulin 2.9 Albumin/Globulin Ratio 1.4 Lipase 13 Repeat lactate is normal. Treatment and Re-Evaluation :: Patient was reassessed at 1300. 800 cc of his second liter has infused. He hasno urge to urinate. Third liter was ordered. Discharge Plan Triage Chief Complaint: Nausea/Vomiting/Diarrhea ED Provider: Kenyon Irwin Dx/Rx/DC Orders Clinical Impression: Acute generalized abdominal pain, Intractable nausea and vomiting, Acute dehydration, Elevated serum creatinine, Acute hyponatremia, Thrombocytopenia, Acidosis, lactic Prescriptions: New ondansetron 4 mg tablet,disintegrating 4 mg PO Q8H PRN PRN (Reason: Nausea) Qty: 6 0RF dicyclomine 10 mg capsule 20 mg PO TIDAC Qty: 20 0RF Primary Care Provider: Care Physician,No Primary Referrals: Care Physician,No Primary [Primary Care Provider] - Print Language: Tongan Disposition Disposition: Home, Self Care What to do if you have Problems For any increased pain, shortness of breath, bleeding, nausea or vomiting, chestpain, or any unexpected problems, contact your Primary Care Provider. Call [facility] ([phone]) or report to the closest Emergency Room. Call 911 if necessary. 02/04/25 1407 <Electronically signed by Kenyon Irwin MD> Cosigner Signature (if applicable): CC: No Primary Care Physician ~ Signed [facility] Work Phone: Evaluation note Note Date & Type Note Facility Evaluation note No assessment information availa ble [facility] Work Phone: Reason for referral (narrative) Note Date & Type Note Facility Reason for referral (narrative) No reason for referral information available [facility] Work Phone: Summary Purpose Family History No Family History Records FoundNo Family History Records Found Advance Directives No Advanced Directives Records Found Advance Directive Response Recorded Date/ Time Do you have a Healthcare Power of Occupational Health Nurse? No February 04, 2025 8:55am Chief Complaint and Reason for Visit Chief Complaint Admit Date n/v/d February 04, 2025 8:16a m Additional Source Comments (unrecognized sect ion and content) No Status Records FoundNo Status Records Found INFORMATION SOURCE (unrecogn ized section and content) DATE CREATED AUTHOR 02/23/2018 [facility] DATE CREATED AUTHOR AUTHOR'S FÉLIX VASQUEZ 02/05/2025 [facility] Care Teams (unrecognized sec tion and content) Team Status: Active Member Role Status Dates No Primary Care Physician Primary Care Provider Active Team Status: Inactive Member Role Status Dates Dr. Kenyon Irwin MD Emergency Provider Active Sta rt: February 04, 2025 End: February 04, 2025 No Primary Care Physician Primary Care Provider Active Start: February 04, 2025 End: February 04, 2025 Goals (unrecognized section and content) Goals may be documented in a n alternate section FOR RECORDS PERTAINING TO PATIENTS WHO ARE [...] BE BASED ON THE PRIMARY CLINICAL RECORDS. [employer] provides no warranty or guarantee of the accuracy or completeness of information in this document.
--- NOTE | 2025-02-12 16:31 | EX.ED.DYSGE1 ---
HPI History of Present Illness Chief Complaint: Shortness of Breath Informant: patient Onset/Context/Timing Onset: Days (10) Context: Gradual Onset Timing: Continuous Quality: Cramping Location: Lower abdomen Worsened by: Drinking or eating Relieved by: Nothing Narrative Narrative: Patient presents with nausea, vomiting, diarrhea, and abdominal cramping for the past 10 days. Patient states he was seen here last week and was given IV fluids. Patient states that his symptoms started to improve. Patient states over the past couple days he started to get worse again. Patient states every time he eats or drinks anything he gets cramping over his lower abdomen. Patient admits to subjective fever. Patient also admits to some dysuria and urinary frequency. Patient states nothing makes his symptoms better. PFSH PFSH Medical History no medical history Home Medications ?Medication ?Instructions ?Recorded ?Last Taken ?Type NK 02/12/25 Unknown History Allergy/AdvReac Type Severity Reaction Status Date / Time No Known Allergies Allergy Verified 02/12/25 15:07 Family History no significant family his Surgical History no surgical history Social History Smoking Status: Current every day smoker tobacco type: cigarettes details: Rare occasion substance use type: does not use ROS ROS ED Constitutional Constitutional ED: Denies chills or fever(s) Eyes Eyes: Denies blurry vision or change in vision ENT ENT ED: Denies rhinorrhea or sore throat Cardiovascular Cardiovascular: Denies chest pain or palpitations Respiratory/Chest Respiratory/Chest: Reports dyspnea; Denies cough Gastrointestinal Gastrointestinal: Reports abdominal pain, diarrhea, nausea and vomiting Genitourinary Genitourinary ED: Reports dysuria and urinary frequency Musculoskeletal Musculoskeletal: Denies back pain or neck pain Integumentary Denies abscess or rash Neurologic Neurologic: Denies headache(s) or weakness Allergic/Immunologic Allergic/Immunologic ED: Denies mouth swelling or urticaria EXAM Physical Exam Const Vital Signs: 02/12/25 15:05 02/12/25 15:19 02/12/25 17:00 Temperature 98.6 F Temperature Source Oral Pulse Rate 84 65 Respiratory Rate 16 18 Respiratory Effort Short of Breath Respiratory Depth Normal Respiratory Pattern Normal Blood Pressure 144/80 H 138/77 H Blood Pressure Mean 101 97 Pulse Ox 99 98 Oxygen Delivery Method Room Air Room Air Room Air 02/12/25 19:00 02/12/25 21:00 Temperature Temperature Source Pulse Rate 98 88 Respiratory Rate 19 H Respiratory Effort Respiratory Depth Respiratory Pattern Blood Pressure 120/72 138/68 H Blood Pressure Mean 88 91 Pulse Ox 92 96 Oxygen Delivery Method Room Air Room Air Positive well nourished and well developed General Appearance ED: well developed and NAD HEENT Reports moist mucous membranes Neck supple and no JVD Resp normal respiratory effort and clear to auscultation bilaterally Cardio regular rate and regular rhythm GI non-distended Palpation: soft and tender LLQ, RLQ and suprapubic; Negative for guarding or rebound tenderness present Neuro oriented x3, CN's II-XII intact bilaterally and no sensory deficits noted Sensorium / Orientation: alert Motor Exam: strength 5/5 throughout Psych mental status grossly normal MDM MDM MDM Narrative Medical decision making narrative: Differential diagnose includes bowel obstruction, perforation, electrolyte abnormality, dehydration, viral illness, urinary tract infection, pancreatitis, and electrolyte abnormality. CBC will be obtained to assess for leukocytosis and anemia. Comprehensive metabolic profile will be obtained to assess for electrolyte abnormality and renal function. Lipase will be obtained to assess for pancreatitis. Urinalysis will be obtained to assess for urinary tract infection and hematuria. CT scan of the abdomen and pelvis will be obtained to assess for bowel obstruction or perforation. History & Record Review Additional record(s) reviewed:: Prior ED visit and Prior labs Lab Data Attestation: I reviewed the patient's lab results. Lab results narrative: CBC was reviewed. There is a leukocytosis of 24.5. This is increased from previous result. Comprehensive metabolic profile was reviewed. Chloride was slightly low at 96. Total bilirubin was mildly elevated at 1.8. AST was 52 and ALT was 55. Alkaline phosphatase was within normal limits. Lipase was reviewed and was normal at 30. Urinalysis was reviewed. Urine ketones were 150. There is no evidence of urinary tract infection or hematuria. Labs: Laboratory Results - last 24 hr 02/12/25 02/12/25 15:25 16:45 WBC 24.5 H RBC 5.26 Hgb 15.4 Hct 45.5 MCV 86.5 MCH 29.3 MCHC 33.8 RDW Std Deviation 40.2 RDW Coeff of Marti 12.8 Plt Count 452 H MPV 11.8 Immature Gran % (Auto) 0.900 Neut % (Auto) 83.4 H Lymph % (Auto) 6.7 L [place] % (Auto) 8.6 Eos % (Auto) 0.0 Baso % (Auto) 0.4 Absolute Neuts (auto) 20.4 H Absolute Lymphs (auto) 1.65 Nucleated RBC % 0 Platelet Estimate ADEQUATE RBC Morphology NORM C+C Sodium 137 Potassium 3.6 Chloride 96 L Carbon Dioxide 22.5 Anion Gap 18 H BUN 10 Creatinine 0.76 Estim Creat Clear Calc 193.67 Est GFR (MDRD) Non-Af 126 BUN/Creatinine Ratio 12.9 Glucose 123 H Calcium 9.3 Total Bilirubin 1.80 H AST 52 H ALT 55 H Alkaline Phosphatase 120 Total Protein 7.5 Albumin 3.6 Globulin 3.9 Albumin/Globulin Ratio 0.9 Lipase 30 Urine Color Echo Urine Clarity Clear Urine pH 6.0 Ur Specific Ragan 1.020 Urine Protein 30 H Urine Glucose (UA) Normal Urine Ketones 150 A* Urine Occult Blood 50 H Urine Nitrite Negative Urine Bilirubin 3 H Urine Urobilinogen 12 H Ur Leukocyte Esterase 25 H Urine RBC 0-5 SEEN Urine WBC 0-5 SEEN Ur Squamous Epith Cells 0-5 SEEN Urine Bacteria 2+ Urine Mucus 1+ Radiography Diagnostic Testing: Clinical Impression(s) from Imaging Studies Abdomen/Pelvis CT 02/12/25 16:36 IMPRESSION: 1. Multilocular pelvic abscesses as above. Findings could be secondary to sigmoid diverticulitis, ruptured tip appendicitis and/or terminal ileitis. Recommend clinical correlation and surgical consultation. 2. Probable reactive retroperitoneal and right lower quadrant adenopathy. Above findings discussed with Dr. Scott in the ER at 1924 hours on 02/12/2025. Reading Location: [facility] CT scan of the abdomen pelvis was obtained. There is a multiloculated pelvic abscess measuring 9.0 x 7.2 x 7.2 cm along the rectovesicular pouch and an additional contiguous abscess in the right lower quadrant measuring 5.1 x 6.6 x 9.8 cm. This could be from ruptured appendicitis, diverticulitis, or terminal ileitis. This was interpreted by the radiologist and was also independently reviewed by myself. Treatment and Re-Evaluation :: Patient was given IV fluids. Patient was given a dose of Zosyn. Case was discussed with Dr. Kebede. He recommended having the patient transferred so that an interventional radiologist can place a drain in this abscess. Case was discussed with Dr. Santos at [facility]. He accepted the patient to be transferred there. Arrangements are being made for transfer. Patient and family understand and are agreeable with the plan. All questions were answered. Discharge Plan Triage Chief Complaint: Shortness of Breath Other Complaint: Nausea/Vomiting/Diarrhea ED Provider: Hayder Scott Dx/Rx/DC Orders Clinical Impression: Pelvic abscess in male, Leukocytosis Prescriptions: No Action NK Primary Care Provider: Care Physician,No Primary Referrals: Care Physician,No Primary [Primary Care Provider] - Print Language: Israeli Disposition Disposition: Acute Care Hospital Discharge Location: [facility]
--- NOTE | 2025-02-12 16:36 | CT_ITS ---
PROCEDURE: ABDOMEN/PELVIS W IV CONT ONLY 02/12/2025 REASON FOR EXAM: ABDOMINAL PAIN TECHNIQUE: ABDOMEN/PELVIS W IV CONT ONLY. Coronal and Sagittal reconstruction series were provided. One or more dose reduction techniques were used (e.g., Automated exposure control, adjustment of the mA and/or kV according to patient size, use of iterative reconstruction technique. COMPARISON: None FINDINGS: Mild bibasilar atelectasis. Liver, spleen, pancreas and adrenal glands are intact. Gallbladder is satisfactory. No significant biliary ductal dilation. Kidneys enhance symmetrically. No suspicious renal mass, calculi or hydronephrosis. Urinary bladder is decompressed. Deep pelvic abscess measuring 9.0 x 7.2 x 7.2 cm (AP, TV and CC dimensions) along the rectovesicular pouch containing fluid, gas and surrounding inflammatory changes. Additional contiguous abscess in the right lower quadrant measuring 5.1 x 6.6 x 9.8 cm (AP, TV and CC dimensions) with surrounding inflammation. Associated wall thickening of the adjacent sigmoid colon, appendix and terminal ileum. No bowel obstruction. No free fluid or free air. No abdominal aortic aneurysm. Multiple mildly enlarged retroperitoneal and right lower quadrant mesenteric lymph nodes which may be reactive. Superficial soft tissues are intact. No acute osseous abnormality. Right unilateral pars defect at L5. CT/Abdomen/Pelvis W IV Cont ONLY IMPRESSION: 1. Multilocular pelvic abscesses as above. Findings could be secondary to sigm oid diverticulitis, ruptured tip appendicitis and/or terminal ileitis. Recommend clinical correlation and surgical consultat ion. 2. Probable reactive retroperitoneal and right lower quadrant adenopathy. Above findings discussed with Dr. Scott in the ER at 1924 hours on 5. Reading [facility]
[2025-02-12 16:43] LABS: Absolute Lymphocyte Count 1.65 X10^3/uL (0.83-4.51); Absolute Neutrophil Count 20.4 X10^3/uL (2.0-7.7); Basophil# 0.11 X10^3/uL; Basophil% 0.4 % (0-1); Eosinophil# 0.01 X10^3/uL; Hematocrit 45.5 % (40-54); Hemoglobin 15.4 g/dL (13.0-16.5); Lymphocyte # 1.65 X10^3/ul (0.83-4.51); Lymphocyte % 6.7 % (19-41); Mean Corp Hgb Conc 33.8 g/dL (32-36); Mean Corpuscular Hgb 29.3 pg (27.0-32.0); Mean Corpuscular Volume 86.5 fL (80-94); Mean Platelet Vol. 11.8 fl (6.2-12.0); Monocyte# 2.11 X10^3/uL; Monocyte% 8.6 % (0-10); NRBC Flagged by Analyzer 0 % (0-5); Neutrophil % 83.4 % (47-70); POSITIVE DIFFERENTIAL YES; Platelet Count 452 K/mm3 (150-450); RBC Distribution Width CV 12.8 % (11.6-14.6); RBC Distribution Width SD 40.2 fl (35.1-43.9); Red Blood Count 5.26 M/mm3 (4.6-6.2); White Blood Count 24.5 K/mm3 (4.4-11.0)
[2025-02-12] MEDS: 0.9% Normal Saline (1000mL) 1,000 ML 1000 ML IV (16:44)
[2025-02-12 16:51] LABS: Color, Urine Amber (Yellow); Glucose, Dipstick Normal (Normal); Ketone-Dipstick 150 mg/dl (Negative); Leukocyte Esterase-Dipstick 25 /ul (Negative); Nitrite-Dipstick Negative (Negative); Occult Blood-Urine 50 /ul (Negative); Protein-Dipstick 30 mg/dl (Negative); Urine Bilirubin Dipstick 3 mg/dL (Negative); Urine Clarity Clear (Clear); Urine Urobilinogen 12 mg/dl (Normal)
--- NOTE | 2025-02-12 16:54 | ED.RN ---
Dr Burgess notified of urine ketones
[2025-02-12 16:56] LABS: Bacteria 2+ /hpf (None Seen); Mucous, Urine 1+ /hpf (<or=2+); Red Blood Cells-Urine 0-5 SEEN /hpf (0-5); Squamous Epithelial Cells - UA 0-5 SEEN /hpf (0-5); White Blood Cells 0-5 SEEN /hpf (0-5)
[2025-02-12 16:58] LABS: Differential Indicated SCAN CRITERIA MET; Platelet Estimate ADEQUATE (ADEQ)
[2025-02-12 16:59] LABS: Red Cell Morphology NORM C+C NORMAL (NORM C&C)
[2025-02-12 17:02] LABS: ALB/GLOB Ratio 0.9 RATIO (0.9-2.4); AST(SGOT) 52 U/L (<=37); Alanine Aminotransfer ALT/SGPT 55 U/L (<=46); Albumin, Serum 3.6 g/dL (3.5-5.0); Alkaline Phosphatase 120 U/L (40-129); Anion Gap 18 (5-15); BUN 10 mg/dL (4-19); BUN/Creat Ratio 12.9 RATIO (10-20); Calcium,Total 9.3 mg/dL (7.6-11.0); Carbon Dioxide 22.5 mmol/L (21.0-32.0); Chloride 96 mmol/L (98-108); Creatinine, Serum 0.76 mg/dL (0.70-1.20); EST Glomerular Filtration Rate 126 (>60); Estimated Creatinine Clearance 193.67 ml/min (50-250); Globulin 3.9 g/dL (2.2-4.2); Glucose 123 mg/dL (70-99); Lipase 30 U/L (13-75); Potassium 3.6 mmol/L (3.3-5.1); Protein, Total 7.5 g/dL (5.9-8.4); Sodium Level 137 mmol/L (133-145)
[2025-02-12] MEDS: Piperacil/Tazobactam 4.5 GM in 0.9% Normal Saline (100mL MB+) 100 ML IV (19:41)
[2025-02-12] MEDS: Morphine 4 MG/ML Syringe IV (23:18)
--- NOTE | 2025-02-12 23:29 | PCA ---
PT ACCEPTED BY DR. SMILEY [phone]
--- NOTE | 2025-02-13 00:11 | ED.RN ---
Report called to Tati at [facility]
[2025-02-13 00:12] VITALS: BP 145/69; PULSE 70; RESP 23; TEMP 37; O2SAT 93
[2025-02-13 01:00] VITALS: RESP 16; O2SAT 100
== END 2025-02-13 02:07 | disposition short-term general hospital (02) ==
PROVIDERS: Emergency Provider Emergency Medicine; Visit Provider Emergency Medicine
DX: K65.1 Peritoneal abscess (principal); R11.2 Nausea with vomiting, unspecified; R19.7 Diarrhea, unspecified; R30.0 Dysuria; R35.0 Frequency of micturition; D72.829 Elevated white blood cell count, unspecified; F17.210 Nicotine dependence, cigarettes, uncomplicated
CPT/HCPCS: 74177; 80053; 81001; 83690; 85025; 96361; 96365; 96375; 99285; Q9967; A4216

== ENCOUNTER → 2025-06-29 | Outpatient (CLI) | payer OTHER, SELFPAY ==
--- NOTE | 2025-06-29 10:48 | CT_ITS ---
PROCEDURE: CT/Abdomen/Pelvis WITH Contrast
== END | disposition home or self-care (01) ==
PROVIDERS: PCP Family Medicine
DX: K35.32 Acute appendicitis with perforation, localized peritonitis, and gangrene, without abscess (principal)
CPT/HCPCS: 74177; Q9967